=== PATIENT | male | born 1970 | race African-American/Black ===

== ENCOUNTER 2018-04-26 20:28 | Emergency (ER) | payer SELFPAY ==
[~2018-04-26] VITALS: Ht 188 cm; Wt 109.0 kg
[2018-04-26 20:34] VITALS: BP 140/80
== END 2018-04-26 22:22 | disposition left against medical advice (07) ==
LOC: ER 20:28
DX: R41.82 Altered mental status, unspecified (principal); Z53.21 Procedure and treatment not carried out due to patient leaving prior to being seen by health care provider